=== PATIENT | male | born 1955 | race Caucasian/White ===

== ENCOUNTER → 2017-08-05 | Outpatient (CLI) | payer MEDICARE ==
[2017-08-05 14:47] LABS: BASO # 0.1 x10^3/uL (0.0-0.2); BASO % 1 % (0-3); EOS % 3 % (0-3); HEMATOCRIT 42.7 % (39.0-53.0); HEMOGLOBIN 13.9 g/dL (13.0-17.5); LYMPH # 2.4 x10^3/uL (1.0-4.8); LYMPH % 21 % (24-48); MEAN CORPUSCULAR HEMOGLOBIN 30 pg (25-35); MEAN CORPUSCULAR HGB CONC 33 g/dL (31-37); MEAN CORPUSCULAR VOLUME 92 fL (79-100); MONO % 5 % (0-9); NEUT % 70 % (31-73); PLATELET COUNT 239 x10^3/uL (140-400); RED BLOOD COUNT 4.63 x10^6/uL (4.30-5.70); RED CELL DISTRIBUTION WIDTH 13.6 % (11.5-14.5); WHITE BLOOD COUNT 11.3 x10^3/uL (4.0-11.0)
[2017-08-05 15:06] LABS: ALBUMIN 3.3 g/dL (3.4-5.0); ALBUMIN/GLOBULIN RATIO 0.7 (1.0-1.7); CALCIUM 9.2 mg/dL (8.5-10.1); CHOLESTEROL/HDL RATIO 3.4; CREATININE 1.4 mg/dL (0.7-1.3); GFR 51.9; TOTAL BILIRUBIN 0.4 mg/dL (0.2-1.0); TOTAL PROTEIN 7.9 g/dL (6.4-8.2)
== END | disposition home or self-care (01) ==
LOC: LAB 14:14
PROVIDERS: ATTEND Family Medicine
DX: I10 Essential (primary) hypertension (principal); E11.9 Type 2 diabetes mellitus without complications
CPT/HCPCS: 36415; 80053; 80061; 83036; 84443; 85025

== ENCOUNTER → 2017-09-28 | Outpatient (CLI) | payer MEDICARE | END | disposition home or self-care (01) | LOC: PMGWOUND 11:31 | DX: E11.621 Type 2 diabetes mellitus with foot ulcer (principal); L97.421 Non-pressure chronic ulcer of left heel and midfoot limited to breakdown of skin; E11.40 Type 2 diabetes mellitus with diabetic neuropathy, unspecified; E11.319 Type 2 diabetes mellitus with unspecified diabetic retinopathy without macular edema; E11.21 Type 2 diabetes mellitus with diabetic nephropathy; E11.51 Type 2 diabetes mellitus with diabetic peripheral angiopathy without gangrene; E03.9 Hypothyroidism, unspecified; G89.29 Other chronic pain; M54.9 Dorsalgia, unspecified; I25.810 Atherosclerosis of coronary artery bypass graft(s) without angina pectoris; E78.5 Hyperlipidemia, unspecified; I10 Essential (primary) hypertension; F17.210 Nicotine dependence, cigarettes, uncomplicated; Z72.89 Other problems related to lifestyle; E66.01 Morbid (severe) obesity due to excess calories; Z68.41 Body mass index [BMI] 40.0-44.9, adult; Z95.1 Presence of aortocoronary bypass graft | CPT/HCPCS: 99204; 99214 ==

== ENCOUNTER → 2017-10-05 | Outpatient (CLI) | payer MEDICARE | END | disposition home or self-care (01) | LOC: PMGWOUND 11:24 | DX: E11.621 Type 2 diabetes mellitus with foot ulcer (principal); L97.421 Non-pressure chronic ulcer of left heel and midfoot limited to breakdown of skin; E11.40 Type 2 diabetes mellitus with diabetic neuropathy, unspecified; E11.319 Type 2 diabetes mellitus with unspecified diabetic retinopathy without macular edema; E11.21 Type 2 diabetes mellitus with diabetic nephropathy; E11.51 Type 2 diabetes mellitus with diabetic peripheral angiopathy without gangrene; E03.9 Hypothyroidism, unspecified; G89.29 Other chronic pain; M54.9 Dorsalgia, unspecified; I25.810 Atherosclerosis of coronary artery bypass graft(s) without angina pectoris; E78.5 Hyperlipidemia, unspecified; I10 Essential (primary) hypertension; F17.210 Nicotine dependence, cigarettes, uncomplicated; Z72.89 Other problems related to lifestyle; E66.01 Morbid (severe) obesity due to excess calories; Z68.41 Body mass index [BMI] 40.0-44.9, adult; Z95.1 Presence of aortocoronary bypass graft | CPT/HCPCS: 93922; 93926; 97597 ==

== ENCOUNTER → 2017-10-12 | Outpatient (CLI) | payer MEDICARE | END | disposition home or self-care (01) | LOC: PMGWOUND 11:32 | DX: E11.621 Type 2 diabetes mellitus with foot ulcer (principal); L97.421 Non-pressure chronic ulcer of left heel and midfoot limited to breakdown of skin; E11.40 Type 2 diabetes mellitus with diabetic neuropathy, unspecified; E11.319 Type 2 diabetes mellitus with unspecified diabetic retinopathy without macular edema; E11.21 Type 2 diabetes mellitus with diabetic nephropathy; E11.51 Type 2 diabetes mellitus with diabetic peripheral angiopathy without gangrene; E03.9 Hypothyroidism, unspecified; G89.29 Other chronic pain; M54.9 Dorsalgia, unspecified; I25.810 Atherosclerosis of coronary artery bypass graft(s) without angina pectoris; E78.5 Hyperlipidemia, unspecified; I10 Essential (primary) hypertension; F17.210 Nicotine dependence, cigarettes, uncomplicated; Z72.89 Other problems related to lifestyle; E66.01 Morbid (severe) obesity due to excess calories; Z68.41 Body mass index [BMI] 40.0-44.9, adult; Z95.1 Presence of aortocoronary bypass graft | CPT/HCPCS: 97597 ==

== ENCOUNTER → 2017-10-19 | Outpatient (CLI) | payer MEDICARE | END | disposition home or self-care (01) | LOC: PMGWOUND 11:00 | DX: E11.621 Type 2 diabetes mellitus with foot ulcer (principal); L97.421 Non-pressure chronic ulcer of left heel and midfoot limited to breakdown of skin; E11.40 Type 2 diabetes mellitus with diabetic neuropathy, unspecified; E11.319 Type 2 diabetes mellitus with unspecified diabetic retinopathy without macular edema; E11.21 Type 2 diabetes mellitus with diabetic nephropathy; E11.51 Type 2 diabetes mellitus with diabetic peripheral angiopathy without gangrene; E03.9 Hypothyroidism, unspecified; G89.29 Other chronic pain; M54.9 Dorsalgia, unspecified; I25.10 Atherosclerotic heart disease of native coronary artery without angina pectoris; E78.5 Hyperlipidemia, unspecified; I10 Essential (primary) hypertension; F17.210 Nicotine dependence, cigarettes, uncomplicated; E66.01 Morbid (severe) obesity due to excess calories; Z68.41 Body mass index [BMI] 40.0-44.9, adult; Z72.89 Other problems related to lifestyle; Z95.1 Presence of aortocoronary bypass graft | CPT/HCPCS: 97597 ==

== ENCOUNTER → 2017-10-26 | Outpatient (CLI) | payer MEDICARE | END | disposition home or self-care (01) | LOC: PMGWOUND 12:45 | DX: E11.621 Type 2 diabetes mellitus with foot ulcer (principal); L97.421 Non-pressure chronic ulcer of left heel and midfoot limited to breakdown of skin; E11.40 Type 2 diabetes mellitus with diabetic neuropathy, unspecified; E11.319 Type 2 diabetes mellitus with unspecified diabetic retinopathy without macular edema; E11.21 Type 2 diabetes mellitus with diabetic nephropathy; E11.51 Type 2 diabetes mellitus with diabetic peripheral angiopathy without gangrene; E03.9 Hypothyroidism, unspecified; G89.29 Other chronic pain; M54.9 Dorsalgia, unspecified; I25.10 Atherosclerotic heart disease of native coronary artery without angina pectoris; E78.5 Hyperlipidemia, unspecified; I10 Essential (primary) hypertension; F17.210 Nicotine dependence, cigarettes, uncomplicated; E66.01 Morbid (severe) obesity due to excess calories; Z68.41 Body mass index [BMI] 40.0-44.9, adult; Z72.89 Other problems related to lifestyle; Z95.1 Presence of aortocoronary bypass graft | CPT/HCPCS: 97597 ==

== ENCOUNTER → 2017-11-02 | Outpatient (CLI) | payer MEDICARE | END | disposition home or self-care (01) | LOC: PMGWOUND 13:11 | DX: E11.621 Type 2 diabetes mellitus with foot ulcer (principal); L97.421 Non-pressure chronic ulcer of left heel and midfoot limited to breakdown of skin; E11.40 Type 2 diabetes mellitus with diabetic neuropathy, unspecified; E11.319 Type 2 diabetes mellitus with unspecified diabetic retinopathy without macular edema; E11.21 Type 2 diabetes mellitus with diabetic nephropathy; E11.51 Type 2 diabetes mellitus with diabetic peripheral angiopathy without gangrene; E03.9 Hypothyroidism, unspecified; G89.29 Other chronic pain; M54.9 Dorsalgia, unspecified; I25.10 Atherosclerotic heart disease of native coronary artery without angina pectoris; E78.5 Hyperlipidemia, unspecified; I10 Essential (primary) hypertension; F17.210 Nicotine dependence, cigarettes, uncomplicated; E66.01 Morbid (severe) obesity due to excess calories; Z68.41 Body mass index [BMI] 40.0-44.9, adult; Z72.89 Other problems related to lifestyle; Z95.1 Presence of aortocoronary bypass graft | CPT/HCPCS: 99214 ==

== ENCOUNTER → 2017-11-10 | Outpatient (CLI) | payer MEDICARE | END | disposition home or self-care (01) | LOC: PMGWOUND 12:43 | DX: E11.621 Type 2 diabetes mellitus with foot ulcer (principal); L97.428 Non-pressure chronic ulcer of left heel and midfoot with other specified severity; I70.202 Unspecified atherosclerosis of native arteries of extremities, left leg; I25.10 Atherosclerotic heart disease of native coronary artery without angina pectoris; I10 Essential (primary) hypertension; E78.5 Hyperlipidemia, unspecified; E03.9 Hypothyroidism, unspecified; E66.01 Morbid (severe) obesity due to excess calories; G89.29 Other chronic pain; E11.40 Type 2 diabetes mellitus with diabetic neuropathy, unspecified; E11.21 Type 2 diabetes mellitus with diabetic nephropathy; E11.51 Type 2 diabetes mellitus with diabetic peripheral angiopathy without gangrene; E11.319 Type 2 diabetes mellitus with unspecified diabetic retinopathy without macular edema; F17.210 Nicotine dependence, cigarettes, uncomplicated; Z68.41 Body mass index [BMI] 40.0-44.9, adult; Z95.1 Presence of aortocoronary bypass graft; Z72.89 Other problems related to lifestyle | CPT/HCPCS: 11042 ==

== ENCOUNTER → 2017-11-17 | Outpatient (CLI) | payer MEDICARE | END | disposition home or self-care (01) | LOC: PMGWOUND 11:30 | DX: E11.621 Type 2 diabetes mellitus with foot ulcer (principal); L97.428 Non-pressure chronic ulcer of left heel and midfoot with other specified severity; I70.202 Unspecified atherosclerosis of native arteries of extremities, left leg; I25.10 Atherosclerotic heart disease of native coronary artery without angina pectoris; I10 Essential (primary) hypertension; E78.5 Hyperlipidemia, unspecified; E03.9 Hypothyroidism, unspecified; E66.01 Morbid (severe) obesity due to excess calories; G89.29 Other chronic pain; E11.40 Type 2 diabetes mellitus with diabetic neuropathy, unspecified; E11.51 Type 2 diabetes mellitus with diabetic peripheral angiopathy without gangrene; E11.21 Type 2 diabetes mellitus with diabetic nephropathy; E11.319 Type 2 diabetes mellitus with unspecified diabetic retinopathy without macular edema; F17.210 Nicotine dependence, cigarettes, uncomplicated; Z68.41 Body mass index [BMI] 40.0-44.9, adult; Z95.1 Presence of aortocoronary bypass graft; Z72.89 Other problems related to lifestyle | CPT/HCPCS: 97597 ==

== ENCOUNTER → 2017-11-24 | Outpatient (CLI) | payer MEDICARE | END | disposition home or self-care (01) | LOC: PMGWOUND 11:57 | DX: E11.621 Type 2 diabetes mellitus with foot ulcer (principal); L97.428 Non-pressure chronic ulcer of left heel and midfoot with other specified severity; I70.202 Unspecified atherosclerosis of native arteries of extremities, left leg; I25.10 Atherosclerotic heart disease of native coronary artery without angina pectoris; I10 Essential (primary) hypertension; E78.5 Hyperlipidemia, unspecified; E03.9 Hypothyroidism, unspecified; E66.01 Morbid (severe) obesity due to excess calories; G89.29 Other chronic pain; E11.40 Type 2 diabetes mellitus with diabetic neuropathy, unspecified; E11.51 Type 2 diabetes mellitus with diabetic peripheral angiopathy without gangrene; E11.21 Type 2 diabetes mellitus with diabetic nephropathy; E11.319 Type 2 diabetes mellitus with unspecified diabetic retinopathy without macular edema; F17.210 Nicotine dependence, cigarettes, uncomplicated; Z68.41 Body mass index [BMI] 40.0-44.9, adult; Z95.1 Presence of aortocoronary bypass graft | CPT/HCPCS: 97597 ==

== ENCOUNTER → 2017-12-01 | Outpatient (CLI) | payer MEDICARE | END | disposition home or self-care (01) | LOC: PMGWOUND 10:29 | DX: E11.621 Type 2 diabetes mellitus with foot ulcer (principal); L97.428 Non-pressure chronic ulcer of left heel and midfoot with other specified severity; I70.202 Unspecified atherosclerosis of native arteries of extremities, left leg; I25.10 Atherosclerotic heart disease of native coronary artery without angina pectoris; I10 Essential (primary) hypertension; E78.5 Hyperlipidemia, unspecified; E03.9 Hypothyroidism, unspecified; E66.01 Morbid (severe) obesity due to excess calories; G89.29 Other chronic pain; E11.40 Type 2 diabetes mellitus with diabetic neuropathy, unspecified; E11.51 Type 2 diabetes mellitus with diabetic peripheral angiopathy without gangrene; E11.21 Type 2 diabetes mellitus with diabetic nephropathy; E11.319 Type 2 diabetes mellitus with unspecified diabetic retinopathy without macular edema; F17.210 Nicotine dependence, cigarettes, uncomplicated; Z68.41 Body mass index [BMI] 40.0-44.9, adult; Z95.1 Presence of aortocoronary bypass graft | CPT/HCPCS: 97597 ==

== ENCOUNTER → 2017-12-08 | Outpatient (CLI) | payer MEDICARE | END | disposition home or self-care (01) | LOC: PMGWOUND 10:23 | DX: E11.621 Type 2 diabetes mellitus with foot ulcer (principal); L97.428 Non-pressure chronic ulcer of left heel and midfoot with other specified severity; I70.202 Unspecified atherosclerosis of native arteries of extremities, left leg; I10 Essential (primary) hypertension; I25.10 Atherosclerotic heart disease of native coronary artery without angina pectoris; E78.5 Hyperlipidemia, unspecified; E03.9 Hypothyroidism, unspecified; E66.01 Morbid (severe) obesity due to excess calories; G89.29 Other chronic pain; M54.9 Dorsalgia, unspecified; E11.40 Type 2 diabetes mellitus with diabetic neuropathy, unspecified; E11.51 Type 2 diabetes mellitus with diabetic peripheral angiopathy without gangrene; E11.21 Type 2 diabetes mellitus with diabetic nephropathy; E11.319 Type 2 diabetes mellitus with unspecified diabetic retinopathy without macular edema; F17.210 Nicotine dependence, cigarettes, uncomplicated; Z68.41 Body mass index [BMI] 40.0-44.9, adult; Z95.1 Presence of aortocoronary bypass graft | CPT/HCPCS: 11042 ==

== ENCOUNTER → 2017-12-15 | Outpatient (CLI) | payer MEDICARE | END | disposition home or self-care (01) | LOC: PMGWOUND 10:05 | DX: E11.621 Type 2 diabetes mellitus with foot ulcer (principal); L97.421 Non-pressure chronic ulcer of left heel and midfoot limited to breakdown of skin; I70.202 Unspecified atherosclerosis of native arteries of extremities, left leg; I10 Essential (primary) hypertension; I25.10 Atherosclerotic heart disease of native coronary artery without angina pectoris; E78.5 Hyperlipidemia, unspecified; E03.9 Hypothyroidism, unspecified; L84 Corns and callosities; E66.01 Morbid (severe) obesity due to excess calories; G89.29 Other chronic pain; M54.9 Dorsalgia, unspecified; E11.40 Type 2 diabetes mellitus with diabetic neuropathy, unspecified; E11.51 Type 2 diabetes mellitus with diabetic peripheral angiopathy without gangrene; E11.21 Type 2 diabetes mellitus with diabetic nephropathy; E11.319 Type 2 diabetes mellitus with unspecified diabetic retinopathy without macular edema; F17.210 Nicotine dependence, cigarettes, uncomplicated; Z68.41 Body mass index [BMI] 40.0-44.9, adult; Z95.1 Presence of aortocoronary bypass graft | CPT/HCPCS: 97597 ==

== ENCOUNTER → 2017-12-22 | Outpatient (CLI) | payer MEDICARE | END | disposition home or self-care (01) | LOC: PMGWOUND 10:50 | DX: E11.621 Type 2 diabetes mellitus with foot ulcer (principal); L97.421 Non-pressure chronic ulcer of left heel and midfoot limited to breakdown of skin; I70.202 Unspecified atherosclerosis of native arteries of extremities, left leg; E11.40 Type 2 diabetes mellitus with diabetic neuropathy, unspecified; E11.51 Type 2 diabetes mellitus with diabetic peripheral angiopathy without gangrene; E11.21 Type 2 diabetes mellitus with diabetic nephropathy; E11.319 Type 2 diabetes mellitus with unspecified diabetic retinopathy without macular edema; I10 Essential (primary) hypertension; I25.10 Atherosclerotic heart disease of native coronary artery without angina pectoris; E78.5 Hyperlipidemia, unspecified; E03.9 Hypothyroidism, unspecified; L84 Corns and callosities; E66.01 Morbid (severe) obesity due to excess calories; G89.29 Other chronic pain; M54.9 Dorsalgia, unspecified; F17.210 Nicotine dependence, cigarettes, uncomplicated; Z68.41 Body mass index [BMI] 40.0-44.9, adult; Z95.1 Presence of aortocoronary bypass graft | CPT/HCPCS: 11042 ==

== ENCOUNTER → 2018-01-05 | Outpatient (CLI) | payer MEDICARE | END | disposition home or self-care (01) | LOC: PMGWOUND 12:07 | DX: E11.621 Type 2 diabetes mellitus with foot ulcer (principal); L97.428 Non-pressure chronic ulcer of left heel and midfoot with other specified severity; I70.202 Unspecified atherosclerosis of native arteries of extremities, left leg; I25.10 Atherosclerotic heart disease of native coronary artery without angina pectoris; I10 Essential (primary) hypertension; E78.5 Hyperlipidemia, unspecified; E03.9 Hypothyroidism, unspecified; E66.01 Morbid (severe) obesity due to excess calories; G89.29 Other chronic pain; E11.40 Type 2 diabetes mellitus with diabetic neuropathy, unspecified; E11.21 Type 2 diabetes mellitus with diabetic nephropathy; E11.51 Type 2 diabetes mellitus with diabetic peripheral angiopathy without gangrene; E11.319 Type 2 diabetes mellitus with unspecified diabetic retinopathy without macular edema; I25.2 Old myocardial infarction; F17.210 Nicotine dependence, cigarettes, uncomplicated; Z72.89 Other problems related to lifestyle; Z68.41 Body mass index [BMI] 40.0-44.9, adult; Z95.1 Presence of aortocoronary bypass graft; Z79.01 Long term (current) use of anticoagulants | CPT/HCPCS: 97597 ==

== ENCOUNTER → 2018-01-19 | Outpatient (CLI) | payer MEDICARE | END | disposition home or self-care (01) | LOC: PMGWOUND 11:54 | DX: E11.621 Type 2 diabetes mellitus with foot ulcer (principal); L97.428 Non-pressure chronic ulcer of left heel and midfoot with other specified severity; I70.202 Unspecified atherosclerosis of native arteries of extremities, left leg; I25.10 Atherosclerotic heart disease of native coronary artery without angina pectoris; I10 Essential (primary) hypertension; E78.5 Hyperlipidemia, unspecified; E03.9 Hypothyroidism, unspecified; E66.01 Morbid (severe) obesity due to excess calories; G89.29 Other chronic pain; E11.40 Type 2 diabetes mellitus with diabetic neuropathy, unspecified; E11.21 Type 2 diabetes mellitus with diabetic nephropathy; E11.51 Type 2 diabetes mellitus with diabetic peripheral angiopathy without gangrene; E11.319 Type 2 diabetes mellitus with unspecified diabetic retinopathy without macular edema; I25.2 Old myocardial infarction; F17.210 Nicotine dependence, cigarettes, uncomplicated; Z68.41 Body mass index [BMI] 40.0-44.9, adult; Z95.1 Presence of aortocoronary bypass graft; Z79.01 Long term (current) use of anticoagulants | CPT/HCPCS: 11042 ==

== ENCOUNTER → 2018-01-26 | Outpatient (CLI) | payer MEDICARE | END | disposition home or self-care (01) | LOC: PMGWOUND 11:54 | DX: E11.621 Type 2 diabetes mellitus with foot ulcer (principal); L97.421 Non-pressure chronic ulcer of left heel and midfoot limited to breakdown of skin; I70.202 Unspecified atherosclerosis of native arteries of extremities, left leg; I25.10 Atherosclerotic heart disease of native coronary artery without angina pectoris; E11.40 Type 2 diabetes mellitus with diabetic neuropathy, unspecified; E11.21 Type 2 diabetes mellitus with diabetic nephropathy; E11.51 Type 2 diabetes mellitus with diabetic peripheral angiopathy without gangrene; E11.319 Type 2 diabetes mellitus with unspecified diabetic retinopathy without macular edema; I25.2 Old myocardial infarction; I10 Essential (primary) hypertension; E78.5 Hyperlipidemia, unspecified; E03.9 Hypothyroidism, unspecified; E66.01 Morbid (severe) obesity due to excess calories; G89.29 Other chronic pain; L84 Corns and callosities; F17.210 Nicotine dependence, cigarettes, uncomplicated; Z68.41 Body mass index [BMI] 40.0-44.9, adult; Z95.1 Presence of aortocoronary bypass graft; Z79.01 Long term (current) use of anticoagulants | CPT/HCPCS: 97597 ==

== ENCOUNTER → 2018-02-04 | Outpatient (CLI) | payer MEDICARE | END | disposition home or self-care (01) | LOC: PMGWOUND 11:46 | DX: E11.621 Type 2 diabetes mellitus with foot ulcer (principal); L97.421 Non-pressure chronic ulcer of left heel and midfoot limited to breakdown of skin; I70.202 Unspecified atherosclerosis of native arteries of extremities, left leg; I25.10 Atherosclerotic heart disease of native coronary artery without angina pectoris; E11.40 Type 2 diabetes mellitus with diabetic neuropathy, unspecified; E11.21 Type 2 diabetes mellitus with diabetic nephropathy; E11.51 Type 2 diabetes mellitus with diabetic peripheral angiopathy without gangrene; E11.319 Type 2 diabetes mellitus with unspecified diabetic retinopathy without macular edema; I25.2 Old myocardial infarction; I10 Essential (primary) hypertension; E78.5 Hyperlipidemia, unspecified; E03.9 Hypothyroidism, unspecified; E66.01 Morbid (severe) obesity due to excess calories; G89.29 Other chronic pain; L84 Corns and callosities; F17.210 Nicotine dependence, cigarettes, uncomplicated; Z68.41 Body mass index [BMI] 40.0-44.9, adult; Z95.1 Presence of aortocoronary bypass graft; Z79.01 Long term (current) use of anticoagulants | CPT/HCPCS: 11042 ==

== ENCOUNTER → 2018-02-18 | Outpatient (CLI) | payer MEDICARE | END | disposition home or self-care (01) | LOC: PMGWOUND 11:20 | DX: E11.621 Type 2 diabetes mellitus with foot ulcer (principal); L97.421 Non-pressure chronic ulcer of left heel and midfoot limited to breakdown of skin; I70.202 Unspecified atherosclerosis of native arteries of extremities, left leg; I25.10 Atherosclerotic heart disease of native coronary artery without angina pectoris; E11.40 Type 2 diabetes mellitus with diabetic neuropathy, unspecified; E11.21 Type 2 diabetes mellitus with diabetic nephropathy; E11.51 Type 2 diabetes mellitus with diabetic peripheral angiopathy without gangrene; E11.319 Type 2 diabetes mellitus with unspecified diabetic retinopathy without macular edema; I25.2 Old myocardial infarction; I10 Essential (primary) hypertension; E78.5 Hyperlipidemia, unspecified; E03.9 Hypothyroidism, unspecified; E66.01 Morbid (severe) obesity due to excess calories; G89.29 Other chronic pain; L84 Corns and callosities; F17.210 Nicotine dependence, cigarettes, uncomplicated; Z68.41 Body mass index [BMI] 40.0-44.9, adult; Z95.1 Presence of aortocoronary bypass graft; Z79.01 Long term (current) use of anticoagulants | CPT/HCPCS: 99214 ==

== ENCOUNTER → 2018-03-09 | Outpatient (CLI) | payer MEDICARE | END | disposition home or self-care (01) | LOC: PMGWOUND 11:24 | DX: E11.621 Type 2 diabetes mellitus with foot ulcer (principal); L97.421 Non-pressure chronic ulcer of left heel and midfoot limited to breakdown of skin; L97.511 Non-pressure chronic ulcer of other part of right foot limited to breakdown of skin; E11.622 Type 2 diabetes mellitus with other skin ulcer; L97.211 Non-pressure chronic ulcer of right calf limited to breakdown of skin; I70.232 Atherosclerosis of native arteries of right leg with ulceration of calf; I87.2 Venous insufficiency (chronic) (peripheral); I70.202 Unspecified atherosclerosis of native arteries of extremities, left leg; I25.10 Atherosclerotic heart disease of native coronary artery without angina pectoris; E11.40 Type 2 diabetes mellitus with diabetic neuropathy, unspecified; E11.21 Type 2 diabetes mellitus with diabetic nephropathy; E11.51 Type 2 diabetes mellitus with diabetic peripheral angiopathy without gangrene; E11.319 Type 2 diabetes mellitus with unspecified diabetic retinopathy without macular edema; I25.2 Old myocardial infarction; I10 Essential (primary) hypertension; E78.5 Hyperlipidemia, unspecified; E03.9 Hypothyroidism, unspecified; E66.01 Morbid (severe) obesity due to excess calories; G89.29 Other chronic pain; L84 Corns and callosities; F17.210 Nicotine dependence, cigarettes, uncomplicated; Z68.41 Body mass index [BMI] 40.0-44.9, adult; Z95.1 Presence of aortocoronary bypass graft; Z79.01 Long term (current) use of anticoagulants | CPT/HCPCS: 99214 ==

== ENCOUNTER 2018-04-12 05:57 | Inpatient (IN) | payer MEDICARE ==
[~2018-04-12] VITALS: Ht 175.3 cm; Wt 126.1 kg
[2018-04-12] VITALS (7 sets, daily range): BP systolic 111–146; BP diastolic 53–65
[~2018-04-12 05:57] MED LIST: ASCO500T2 PO; ATORVASTATIN CA80 MG PO; CHOL200027 PO; CLOP75TA PO; CYCL10TA2 PO; INSU100V11 IJ; IOHEXOL 300 MG/ML 100ML VIAL. ONE; ISOS30TA4 PO; LEVO50TA5 PO; LISI10TA2 PO; METF100010 PO; METO25TA4 PO; MIRT30TA3 PO; MULT-460 PO; NPH,100V5 SQ; OXYC10TA PO; POLY17PO29 PO; SURGICEL FIBRILLAR 1X2 EACH. ONE
[2018-04-12] MEDS ORDERED: HEPARIN SODIUM 5,000 UNIT in IV NORMAL SALINE 500ML BAG 500 ML IRR ONE (06:00)
[2018-04-12 06:35] LABS: BASO # 0.1 x10^3/uL (0.0-0.2); BASO % 1 % (0-3); EOS # 0.2 x10^3/uL (0.0-0.7); EOS % 3 % (0-3); HEMATOCRIT 36.9 % (39.0-53.0); HEMOGLOBIN 12.6 g/dL (13.0-17.5); LYMPH # 3.1 x10^3/uL (1.0-4.8); LYMPH % 31 % (24-48); MEAN CORPUSCULAR HEMOGLOBIN 30 pg (25-35); MEAN CORPUSCULAR HGB CONC 34 g/dL (31-37); MEAN CORPUSCULAR VOLUME 88 fL (79-100); MONO # 0.7 x10^3/uL (0.0-1.1); MONO % 7 % (0-9); NEUT # 5.9 x10^3uL (1.8-7.7); NEUT % 59 % (31-73); PLATELET COUNT 263 x10^3/uL (140-400); RED BLOOD COUNT 4.19 x10^6/uL (4.30-5.70); RED CELL DISTRIBUTION WIDTH 13.6 % (11.5-14.5)
[2018-04-12 06:45] LABS: PROTHROMBIN TIME PATIENT 12.3 SEC (11.7-14.0)
[2018-04-12 06:53] LABS: CALCIUM 9.4 mg/dL (8.5-10.1); CREATININE 1.9 mg/dL (0.7-1.3); GFR 36.3; POTASSIUM 4.1 mmol/L (3.5-5.1)
[2018-04-12] MEDS ORDERED: ceFAZolin 2GM PREMIX 2 GM/50 ML BAG IV ONE (07:00)
[2018-04-12] MEDS ORDERED: PROCHLORPERAZINE 10 MG/2 ML VIAL. IV PRN (07:00)
[2018-04-12] MEDS ORDERED: MORPHINE SULFATE 2 MG/ML VIAL. IV PRN ×2 (07:00→14:15)
[2018-04-12] MEDS ORDERED: fentaNYL PF VIAL 100 MCG/2 ML VIAL IV PRN (07:00)
[2018-04-12] MEDS ORDERED: ONDANSETRON PF 4 MG/2 ML VIAL. IV PRN (07:00)
[2018-04-12] MEDS ORDERED: IV RINGERS,LACTATED 1000ML 1,000 ML IV SCH (07:00)
[2018-04-12] MEDS ORDERED: LIDOCAINE 1% PF 2 ML VIAL. ID PRN (07:00)
[2018-04-12] MEDS ORDERED: LIDOCAINE 2% PF Vial for OR 5 ML VIAL. ONE (07:01)
[2018-04-12] MEDS ORDERED: DEXAMETHASONE SOD PHOS 20 MG/5 ML VIAL. ONE (07:01)
[2018-04-12] MEDS ORDERED: PROPOFOL 20 ML IV ONE ×2 (07:01→10:26)
[2018-04-12] MEDS ORDERED: ONDANSETRON PF 4 MG/2 ML VIAL. ONE (07:01)
[2018-04-12] MEDS ORDERED: FAMOTIDINE 20 MG/2 ML VIAL ONE (07:01)
[2018-04-12] MEDS ORDERED: ROCURONIUM 50 MG/5 ML VIAL. ONE (07:01)
[2018-04-12] MEDS ORDERED: fentaNYL PF VIAL 100 MCG/2 ML VIAL ONE ×4 (07:02→11:55)
[2018-04-12] MEDS ORDERED: MIDAZOLAM HCL/PF 2 MG/2 ML VIAL. ONE (07:02)
[2018-04-12] MEDS ORDERED: SUCCINYLCHOLINE 200 MG/10 ML VIAL. ONE (07:31)
[2018-04-12] MEDS ORDERED: PHENYLEPHRINE in 0.9% NACL PF 1 MG/10 ML SYRINGE. IV ONE (07:53)
[2018-04-12] MEDS ORDERED: VASOPRESSIN 20 UNIT/ML VIAL. ONE (08:43)
[2018-04-12] MEDS ORDERED: SEVOFLURANE 61 TO 120 MINUTES. IH ONE ×2 (09:01→09:07)
[2018-04-12] MEDS ORDERED: HEPARIN for IV BOLUS 10,000 UNIT/10 ML VIAL. ONE (09:01)
[2018-04-12] MEDS ORDERED: NEOSTIGMINE METHYLSULFATE 5 MG/5 ML SYRINGE. ONE (10:15)
[2018-04-12] MEDS ORDERED: DESFLURANE > 120 MINUTES IH ONE (10:15)
[2018-04-12] MEDS ORDERED: GLYCOPYRROLATE 1 MG/5 ML VIAL. ONE (10:16)
--- NOTE | 2018-04-12 10:55 | PDOC4 ---
OPERATIVE NOTE: Op note dictated Dx: arterial insuffficiency right leg with ulcers 2. extensive right common femoral, profunda femoral and proximal superficial femoral atherosclerosis producing high grade stenosis Op: 1. extensive right common femoral, profunda femoris, and proximal superficial femoral artery endarterectomy with bovine patch angioplasty Surg: Darleen LINDSAY EBL: 300 cc drains none specimen: atherosclerotic placque, not sent to pathology. EARNEST GALICIA II, MD Apr 12, 2018 10:55
--- NOTE | 2018-04-12 11:27 | OP ---
DATE OF SURGERY: 04/12/2018 PREOPERATIVE DIAGNOSIS: Arterial insufficiency with ulcer, right foot. POSTOPERATIVE DIAGNOSIS: Arterial insufficiency with ulcer, right foot, due to extensive right common femoral, profunda femoris and superficial femoral artery atherosclerosis producing significant stenosis. OPERATION PERFORMED: Right extending common femoral, profunda femoris and superficial femoral artery endarterectomy with bovine patch angioplasty. SURGEON: Ron Morejon M.D. BLOOD BANK TECHNOLOGIST: None. ANESTHESIA: General. INDICATIONS: This is a 62-year-old gentleman who has ulcer on the right foot. He underwent preoperative CT angiography, which demonstrates severe stenosis of the common femoral, profunda and proximal superficial femoral arteries. He has diffuse disease of the superficial femoral artery, but it is patent. He underwent a similar procedure on the left and did well and is having no rest pain and no significant claudication there. The operation risks and benefits were explained. OPERATIVE FINDINGS: The patient had extensive plaque extending proximal to the inguinal ligament to approximately 2 inches beyond the bifurcation of the common femoral artery. There was extensive calcific plaque, which would require endarterectomy of these 3 vessels. A bovine patch was used for closure. At the conclusion of the procedure, the patient had excellent flow in the profunda femoris and in the superficial femoral artery and an excellent palpable pulse in the endarterectomized and patched common femoral artery. DESCRIPTION OF PROCEDURE: After general anesthetic was administered, the right leg was prepped as well as the groin up to the mid abdomen. Tape was used to retract the pannus proximally. Drapes were placed and Ioban occlusive dressing was applied. The patient then was given 3 grams of IV Ancef and a timeout was called. An incision was then made over the common femoral artery, which was not palpable due to extensive calcification. The superficial femoral, profunda and common femoral arteries were dissected. The common femoral artery was dissected up to the inguinal ligament, which was partially divided. There were large branches at this location and proximal to this, the vessel was soft. Vessel loops were placed around all the branches and the distal external iliac artery as well as the profunda. The patient was given 7000 units of heparin and after 3 minutes circulation, a longitudinal arteriotomy was made in the distal common femoral artery and extended onto the superficial femoral artery. There was extensive eccentric calcific plaque which was divided and this was carried distally until an appropriate endpoint was achieved. Endarterectomy was performed of the proximal superficial femoral artery. Plaque was also removed from the profunda femoris artery using a blind technique. A nice tail came out and there was good backbleeding. The plaque was then loosened up circumferentially all the way up to the side-biting clamp and then removed with a tonsil clamp. The artery was inspected for loose strands and it all looked satisfactory. A bovine patch then was placed and sutured with HS7 Prolene starting proximally and then distally and moving toward the middle. Prior to completing the patch closure, the vessels were flushed appropriately. Flow was then restored first to the profunda and then to the superficial femoral arteries. No protamine was given. The wounds were irrigated and closed in 4 layers. There were two layers of 2-0 Vicryl and one layer of 3-0 Vicryl and then the skin closed with 4-0 nylon. Sterile dressings were applied. The patient tolerated the procedure well and was taken to the recovery room in satisfactory condition. RON MOREJON MD DR: [place]/eliane JOB#: [id number] / [id number]
[2018-04-12] MEDS: fentaNYL PF VIAL 100 MCG/2 ML VIAL IV PRN ×3 (11:51→12:27)
[2018-04-12] MEDS: IV RINGERS,LACTATED 1000ML 1,000 ML IV SCH (14:00)
[2018-04-12] MEDS: MORPHINE SULFATE 2 MG/ML VIAL. IV PRN ×2 (15:10→20:24)
[2018-04-12] MEDS: INSULIN LISPRO 300 UNITS/3 ML INSULN.PEN. SQ SCH (17:54)
[2018-04-12] MEDS: HYDROcodone/APAP 10/325 1 TAB TABLET PO PRN (17:57)
[2018-04-12] MEDS: INSULIN GLARGINE 300 UNITS/3 ML INSULN.PEN. SQ SCH (20:38)
[2018-04-12] MEDS: CYCLOBENZAPRINE 10 MG TABLET. PO SCH (20:43)
[2018-04-12] MEDS: ATORVASTATIN CALCIUM 40 MG TABLET. PO SCH (20:44)
[2018-04-12] MEDS: MIRTAZAPINE 15 MG TABLET PO SCH (20:44)
[2018-04-13] MEDS: HYDROcodone/APAP 10/325 1 TAB TABLET PO PRN ×3 (00:24→17:56)
[2018-04-13] MEDS: FAMOTIDINE 20 MG TABLET. PO PRN ×2 (00:43→15:50)
[2018-04-13] MEDS: IV RINGERS,LACTATED 1000ML 1,000 ML IV SCH (01:22)
[2018-04-13 03:30] VITALS: BP 153/68
[2018-04-13] MEDS: MAG HYDROX/ALUMINUM HYD/SIMETH 30 ML ORAL.SUSP PO PRN ×3 (04:53→15:50)
[2018-04-13] MEDS: ONDANSETRON PF 4 MG/2 ML VIAL. IV PRN ×2 (04:57→13:32)
[2018-04-13] MEDS: LEVOTHYROXINE 50 MCG TABLET PO SCH (06:30)
[2018-04-13 07:00] VITALS: BP 149/84
[2018-04-13] MEDS: ASCORBIC ACID 500 MG TABLET PO SCH (08:36)
[2018-04-13] MEDS: CLOPIDOGREL BISULFATE 75 MG TABLET PO SCH (08:36)
[2018-04-13] MEDS: MULTIVITAMIN with MINERAL TABLET. PO SCH (08:37)
[2018-04-13] MEDS: CHOLECALCIFEROL (VITAMIN D3) 1,000 UNIT TABLET PO SCH (08:37)
[2018-04-13] MEDS: METOPROLOL TART IMMED RELEASE 25 MG TABLET. PO SCH ×2 (08:37→20:16)
[2018-04-13] MEDS: LISINOPRIL 10 MG TABLET PO SCH (08:38)
[2018-04-13] MEDS: POLYETHYLENE GLYCOL 3350 17 GM PACKET. PO SCH (08:38)
[2018-04-13] MEDS: ISOSORBIDE MONONITRATE ER 30 MG TAB.ER.24H PO SCH (08:38)
[2018-04-13] MEDS: INSULIN LISPRO 300 UNITS/3 ML INSULN.PEN. SQ SCH ×3 (08:49→17:55)
[2018-04-13] MEDS: INSULIN GLARGINE 300 UNITS/3 ML INSULN.PEN. SQ SCH ×2 (08:49→23:14)
[2018-04-13] MEDS: MORPHINE SULFATE 2 MG/ML VIAL. IV PRN ×2 (09:31→20:22)
[2018-04-13 10:00] LABS: BASO % 0 % (0-3); EOS # 0.1 x10^3/uL (0.0-0.7); EOS % 1 % (0-3); HEMATOCRIT 32.3 % (39.0-53.0); LYMPH # 2.5 x10^3/uL (1.0-4.8); LYMPH % 23 % (24-48); MEAN CORPUSCULAR HEMOGLOBIN 30 pg (25-35); MEAN CORPUSCULAR HGB CONC 34 g/dL (31-37); MEAN CORPUSCULAR VOLUME 88 fL (79-100); MONO # 0.5 x10^3/uL (0.0-1.1); MONO % 5 % (0-9); NEUT # 7.7 x10^3uL (1.8-7.7); NEUT % 71 % (31-73); PLATELET COUNT 231 x10^3/uL (140-400); RED BLOOD COUNT 3.66 x10^6/uL (4.30-5.70); RED CELL DISTRIBUTION WIDTH 13.7 % (11.5-14.5); WHITE BLOOD COUNT 10.8 x10^3/uL (4.0-11.0)
[2018-04-13 10:09] LABS: CALCIUM 8.7 mg/dL (8.5-10.1); GFR 34.3; POTASSIUM 4.3 mmol/L (3.5-5.1)
--- NOTE | 2018-04-13 10:20 | PDOC ---
Provider Note Provider Note AF VSS awake and alert right groin dressing in place and dry right lower leg and foot ulcer dry with no infection right leg with doppler DP/PT pulses A/P POD#1 right femoral endarterectomy - d/c cotto and IV fluids - ambulate as tolerated - cardiac diet - possible discharge home tomorrow MELISA PARISH MD Apr 13, 2018 10:20
[2018-04-13 11:00] VITALS: BP 102/60
--- NOTE | 2018-04-13 12:56 | CONS ---
DATE OF CONSULTATION: 04/13/2018 REASON FOR CONSULT: Management of diabetes and hypertension. HISTORY OF PRESENT ILLNESS AND HOSPITAL COURSE: This patient is a 62-year-old male with multiple medical issues, was electively admitted for right lower extremity revascularization due to arterial insufficiency and ulcerations. The patient is postop day 1 and doing well. He did have some nausea the night of surgery, but this resolved with antacids. He has had a bowel movement since surgery and has no current complaints. He continues to have a Gold and is not ambulated to this point, but these things are planned and the Gold discontinuation will most likely be happened today. PAST MEDICAL HISTORY: Significant for: 1. Diabetes type 2 with neuropathy. 2. Coronary artery disease, status post coronary artery bypass graft in 2008. 3. Hypertension. 4. High cholesterol. 5. Hypothyroidism. 6. Morbid obesity. 7. Obstructive sleep apnea. 8. Peripheral vascular disease. 9. Spinal stenosis of L-spine. PAST SURGICAL HISTORY: Significant for: 1. L4 lumbar laminectomy. 2. Coronary artery bypass graft. 3. Tonsillectomy and adenoidectomy. 4. Total hip arthroplasty on the left. FAMILY HISTORY: Significant for mother who with heart disease. Father who has diabetes and heart disease, a sister who has had a heart transplant. SOCIAL HISTORY: The patient continues to smoke approximately 5 cigarettes per day. He does not use alcohol. He now lives alone. He is on disability for back pain. He has greater than [id number] history of smoking. ALLERGIES: The patient has no known drug allergies. REVIEW OF SYSTEMS: The patient denies any cough, congestion, fever, chest pain, shortness of breath, recent weight gain or weight loss, nausea, vomiting or diarrhea. PHYSICAL EXAMINATION: GENERAL: This is a morbidly obese male who is alert and oriented x 3. HEENT: Benign. NECK: Supple, no JVD or bruits. CARDIAC: Regular rate and rhythm without murmur. LUNGS: Clear. ABDOMEN: Soft, nontender. EXTREMITIES: Warm with healing incision on left lower extremity and eschar and ulcers noted on several areas of his lower extremity, which are documented in chart. PLAN: To proceed with reinstituting medications, increasing activity, discontinuing Gold catheter and discharged to home once stable per Vascular Surgery. The patient's medications that we restarted are metoprolol 25 mg half a tablet b.i.d., Imdur 60 mg half a tablet daily, metformin 500 mg 2 tablets b.i.d., Novolin R 40 units b.i.d., Novolin N 40 units b.i.d., Lipitor 80 mg daily, Plavix 75 mg daily, levothyroxine 50 mcg daily, Remeron 30 mg at bedtime, cyclobenzaprine 10 mg at bedtime, oxycodone 10 mg 3 tablets at bedtime, nitroglycerin p.r.n. sublingually, omega 3 fatty acids, Coenzyme Q10, vitamin C, vitamin D, and Centrum Silver. Again, the patient will be followed by routine postoperative course for revascularization and possible discharge home when stable per Vascular Surgery. I will follow during the hospital stay and as an outpatient. Thank you very much for this consultation. BHARGAV HARPER MD DR: ROB/eliane JOB#: [id number] / [id number]
[2018-04-13 15:00] VITALS: BP 124/67
[2018-04-13] MEDS: METOCLOPRAMIDE 5 MG TABLET. PO SCH ×2 (17:09→20:18)
[2018-04-13 19:50] VITALS: BP 137/60
[2018-04-13] MEDS: CYCLOBENZAPRINE 10 MG TABLET. PO SCH (20:16)
[2018-04-13] MEDS: ATORVASTATIN CALCIUM 40 MG TABLET. PO SCH (20:17)
[2018-04-13] MEDS: MIRTAZAPINE 15 MG TABLET PO SCH (20:18)
[2018-04-13 23:10] VITALS: BP 134/63
[2018-04-14 03:20] VITALS: BP 157/71
[2018-04-14] MEDS: LEVOTHYROXINE 50 MCG TABLET PO SCH (06:00)
[2018-04-14] MEDS: HYDROcodone/APAP 10/325 1 TAB TABLET PO PRN ×2 (06:01→10:07)
[2018-04-14 07:00] VITALS: BP 164/74
[2018-04-14] MEDS: MORPHINE SULFATE 2 MG/ML VIAL. IV PRN ×2 (07:37→12:28)
[2018-04-14] MEDS: INSULIN LISPRO 300 UNITS/3 ML INSULN.PEN. SQ SCH ×2 (08:00→09:01)
[2018-04-14 08:48] LABS: HEMATOCRIT 33.1 % (39.0-53.0); HEMOGLOBIN 11.1 g/dL (13.0-17.5); RED BLOOD COUNT 3.76 x10^6/uL (4.30-5.70); RED CELL DISTRIBUTION WIDTH 13.8 % (11.5-14.5); WHITE BLOOD COUNT 10.9 x10^3/uL (4.0-11.0)
[2018-04-14] MEDS: CLOPIDOGREL BISULFATE 75 MG TABLET PO SCH (08:49)
[2018-04-14] MEDS: CHOLECALCIFEROL (VITAMIN D3) 1,000 UNIT TABLET PO SCH (08:49)
[2018-04-14] MEDS: MULTIVITAMIN with MINERAL TABLET. PO SCH (08:50)
[2018-04-14] MEDS: LISINOPRIL 10 MG TABLET PO SCH (08:50)
[2018-04-14] MEDS: ISOSORBIDE MONONITRATE ER 30 MG TAB.ER.24H PO SCH (08:50)
[2018-04-14] MEDS: ASCORBIC ACID 500 MG TABLET PO SCH (08:50)
[2018-04-14] MEDS: METOPROLOL TART IMMED RELEASE 25 MG TABLET. PO SCH (08:51)
[2018-04-14] MEDS: POLYETHYLENE GLYCOL 3350 17 GM PACKET. PO SCH (08:51)
[2018-04-14] MEDS: METOCLOPRAMIDE 5 MG TABLET. PO SCH ×2 (08:59→11:30)
[2018-04-14] MEDS: INSULIN GLARGINE 300 UNITS/3 ML INSULN.PEN. SQ SCH (09:02)
[2018-04-14 09:06] LABS: CALCIUM 8.6 mg/dL (8.5-10.1); CREATININE 1.8 mg/dL (0.7-1.3); GFR 38.7; POTASSIUM 4.7 mmol/L (3.5-5.1)
--- NOTE | 2018-04-14 09:13 | PDOC ---
PROGRESS NOTES Subjective Subjective Patient feeling better today. Patient ambulating and tolerating diet. patient with some nausea yesterday resolved with Reglan. Objective Objective Vital Signs Date Time Temp Pulse Resp B/P (MAP) Pulse Ox O2 Delivery O2 Flow Rate FiO2 04/14/18 08:51 101 04/14/18 07:00 98.3 18 164/74 (104) 96 Room Air 98.3 04/14/18 06:01 2.0 Intake and Output 04/14/18 07:00 Intake Total 1350 ml Output Total 2825 ml Balance -1475 ml Intake Oral 1350 ml Output Urine Total 2825 ml Physical Exam Abdomen: Normal bowel sounds Heart: Regular rate Extremities: No edema General: Alert Lungs: Clear to auscultation Assessment Assessment Post op day #2 revascularization right leg. PMH: 1. Diabetes type 2 with neuropathy. 2. Coronary artery disease, status post coronary artery bypass graft in 2008. 3. Hypertension. 4. High cholesterol. 5. Hypothyroidism. 6. Morbid obesity. 7. Obstructive sleep apnea. 8. Peripheral vascular disease. 9. Spinal stenosis of L-spine. Plan Plan of Residential per [facility] surgery F/U in Clinic 1 week Comment Review of Relevant I have reviewed the following items lizzy (where applicable) has been applied. Labs Laboratory Tests Test 04/12/18 11:05 04/12/18 20:32 04/13/18 05:00 04/13/18 07:48 Glucose (Fingerstick) 120 mg/dL (70-99) 247 mg/dL (70-99) 187 mg/dL (70-99) 172 mg/dL (70-99) Test 04/13/18 09:20 04/13/18 12:11 04/13/18 16:39 04/13/18 20:46 White Blood Count 10.8 x10^3/uL (4.0-11.0) Red Blood Count 3.66 x10^6/uL (4.30-5.70) Hemoglobin 11.0 g/dL (13.0-17.5) Hematocrit 32.3 % (39.0-53.0) Mean Corpuscular Volume 88 fL (79-100) Mean Corpuscular Hemoglobin 30 pg (25-35) Mean Corpuscular Hemoglobin Concent 34 g/dL (31-37) Red Cell Distribution Width 13.7 % (11.5-14.5) Platelet Count 231 x10^3/uL (140-400) Neutrophils (%) (Auto) 71 % (31-73) Lymphocytes (%) (Auto) 23 % (24-48) Monocytes (%) (Auto) 5 % (0-9) Eosinophils (%) (Auto) 1 % (0-3) Basophils (%) (Auto) 0 % (0-3) Neutrophils # (Auto) 7.7 x10^3uL (1.8-7.7) Lymphocytes # (Auto) 2.5 x10^3/uL (1.0-4.8) Monocytes # (Auto) 0.5 x10^3/uL (0.0-1.1) Eosinophils # (Auto) 0.1 x10^3/uL (0.0-0.7) Basophils # (Auto) 0.0 x10^3/uL (0.0-0.2) Sodium Level 137 mmol/L (136-145) Potassium Level 4.3 mmol/L (3.5-5.1) Chloride Level 102 mmol/L (98-107) Carbon Dioxide Level 25 mmol/L (21-32) Anion Gap 10 (6-14) Blood Urea Nitrogen 37 mg/dL (8-26) Creatinine 2.0 mg/dL (0.7-1.3) Estimated GFR (Cockcroft-Gault) 34.3 Glucose Level 207 mg/dL (70-99) Calcium Level 8.7 mg/dL (8.5-10.1) Glucose (Fingerstick) 159 mg/dL (70-99) 88 mg/dL (70-99) 175 mg/dL (70-99) Test 04/14/18 07:35 04/14/18 08:20 Glucose (Fingerstick) 233 mg/dL (70-99) White Blood Count 10.9 x10^3/uL (4.0-11.0) Red Blood Count 3.76 x10^6/uL (4.30-5.70) Hemoglobin 11.1 g/dL (13.0-17.5) Hematocrit 33.1 % (39.0-53.0) Mean Corpuscular Volume 88 fL (79-100) Mean Corpuscular Hemoglobin 30 pg (25-35) Mean Corpuscular Hemoglobin Concent 33 g/dL (31-37) Red Cell Distribution Width 13.8 % (11.5-14.5) Platelet Count 233 x10^3/uL (140-400) Sodium Level 138 mmol/L (136-145) Potassium Level 4.7 mmol/L (3.5-5.1) Chloride Level 102 mmol/L (98-107) Carbon Dioxide Level 29 mmol/L (21-32) Anion Gap 7 (6-14) Blood Urea Nitrogen 36 mg/dL (8-26) Creatinine 1.8 mg/dL (0.7-1.3) Estimated GFR (Cockcroft-Gault) 38.7 Glucose Level 238 mg/dL (70-99) Calcium Level 8.6 mg/dL (8.5-10.1) Laboratory Tests Test 04/13/18 09:20 04/13/18 12:11 04/13/18 16:39 04/13/18 20:46 White Blood Count 10.8 x10^3/uL (4.0-11.0) Red Blood Count 3.66 x10^6/uL (4.30-5.70) Hemoglobin 11.0 g/dL (13.0-17.5) Hematocrit 32.3 % (39.0-53.0) Mean Corpuscular Volume 88 fL (79-100) Mean Corpuscular Hemoglobin 30 pg (25-35) Mean Corpuscular Hemoglobin Concent 34 g/dL (31-37) Red Cell Distribution Width 13.7 % (11.5-14.5) Platelet Count 231 x10^3/uL (140-400) Neutrophils (%) (Auto) 71 % (31-73) Lymphocytes (%) (Auto) 23 % (24-48) Monocytes (%) (Auto) 5 % (0-9) Eosinophils (%) (Auto) 1 % (0-3) Basophils (%) (Auto) 0 % (0-3) Neutrophils # (Auto) 7.7 x10^3uL (1.8-7.7) Lymphocytes # (Auto) 2.5 x10^3/uL (1.0-4.8) Monocytes # (Auto) 0.5 x10^3/uL (0.0-1.1) Eosinophils # (Auto) 0.1 x10^3/uL (0.0-0.7) Basophils # (Auto) 0.0 x10^3/uL (0.0-0.2) Sodium Level 137 mmol/L (136-145) Potassium Level 4.3 mmol/L (3.5-5.1) Chloride Level 102 mmol/L (98-107) Carbon Dioxide Level 25 mmol/L (21-32) Anion Gap 10 (6-14) Blood Urea Nitrogen 37 mg/dL (8-26) Creatinine 2.0 mg/dL (0.7-1.3) Estimated GFR (Cockcroft-Gault) 34.3 Glucose Level 207 mg/dL (70-99) Calcium Level 8.7 mg/dL (8.5-10.1) Glucose (Fingerstick) 159 mg/dL (70-99) 88 mg/dL (70-99) 175 mg/dL (70-99) Test 04/14/18 07:35 04/14/18 08:20 Glucose (Fingerstick) 233 mg/dL (70-99) White Blood Count 10.9 x10^3/uL (4.0-11.0) Red Blood Count 3.76 x10^6/uL (4.30-5.70) Hemoglobin 11.1 g/dL (13.0-17.5) Hematocrit 33.1 % (39.0-53.0) Mean Corpuscular Volume 88 fL (79-100) Mean Corpuscular Hemoglobin 30 pg (25-35) Mean Corpuscular Hemoglobin Concent 33 g/dL (31-37) Red Cell Distribution Width 13.8 % (11.5-14.5) Platelet Count 233 x10^3/uL (140-400) Sodium Level 138 mmol/L (136-145) Potassium Level 4.7 mmol/L (3.5-5.1) Chloride Level 102 mmol/L (98-107) Carbon Dioxide Level 29 mmol/L (21-32) Anion Gap 7 (6-14) Blood Urea Nitrogen 36 mg/dL (8-26) Creatinine 1.8 mg/dL (0.7-1.3) Estimated GFR (Cockcroft-Gault) 38.7 Glucose Level 238 mg/dL (70-99) Calcium Level 8.6 mg/dL (8.5-10.1) Medications Current Medications Prochlorperazine Edisylate (Compazine) 5 mg PACU PRN PRN IV NAUSEA, MRX1; Start 04/12/18 at 07:00; Stop 04/12/18 at 15:29; Status DC Lidocaine HCl (Xylocaine-Mpf 1% Vial) 2 ml PRN 1X PRN ID PRIOR TO IV START; Start 04/12/18 at 07:00; Stop 04/12/18 at 15:29; Status DC Ringer's Solution 1,000 ml @ 30 mls/hr Q24H IV Last administered on 04/12/18at 06:53; Start 04/12/18 at 07:00; Stop 04/12/18 at 15:29; Status DC Morphine Sulfate (Morphine Sulfate) 1 mg PRN Q10MIN PRN IV SEVERE PAIN; Start 04/12/18 at 07:00; Stop 04/12/18 at 15:29; Status DC Fentanyl Citrate (Fentanyl 2ml Vial) 50 mcg PRN Q5MIN PRN IV MODERATE TO SEVERE PAIN Last administered on 04/12/18at 12:27; Start 04/12/18 at 07:00; Stop at 15:29; Status DC Fentanyl Citrate (Fentanyl 2ml Vial) 25 mcg PRN Q5MIN PRN IV MILD PAIN; Start 04/12/18 at 07:00; Stop 04/12/18 at 15:29; Status DC Ondansetron HCl (Zofran) 4 mg PRN Q6HRS PRN IV NAUSEA/VOMITING; Start 04/12/18 at 07:00; Stop 04/12/18 at 15:29; Status DC Heparin Sodium (Porcine) 5000 unit/Sodium Chloride 505 ml @ 505 mls/hr 1X ONCE IRR Last administered on 04/12/18at 08:12; Start 04/12/18 at 06:00; Stop 04/12 at 06:59; Status DC Cefazolin Sodium 1 gm/Sodium Chloride 500 ml @ 500 mls/hr 1X ONCE IRR Last administered on 04/12/18at 08:12; Start 04/12/18 at 06:00; Stop 04/12/18 at 06:59; Status DC Cefazolin Sodium/ Dextrose 50 ml @ 100 mls/hr 1X PREOP PRN IV PRIOR TO PROCEDURE; Start 04/12/18 at 06:00; Stop 04/12/18 at 18:00; Status DC Iohexol (Omnipaque 300 Mg/ml) 100 ml STK-MED ONCE .ROUTE ; Start 04/12/18 at 05: 33; Stop 04/12/18 at 06:35; Status DC Cellulose (Surgicel Fibrillar 1x2) 1 each STK-MED ONCE .ROUTE ; Start 04/12/18 at 05:33; Stop 04/12/18 at 06:35; Status DC Propofol 20 ml @ As Directed STK-MED ONCE IV ; Start 04/12/18 at 07:01; Stop 04/12 at 07:02; Status DC Dexamethasone Sodium Phosphate (Decadron) 20 mg STK-MED ONCE .ROUTE ; Start 04/12 at 07:01; Stop 04/12/18 at 07:02; Status DC Famotidine (Pepcid Vial) 20 mg STK-MED ONCE .ROUTE ; Start 04/12/18 at 07:01; Stop 04/12/18 at 07:02; Status DC Lidocaine HCl (Lidocaine Pf 2% Vial) 5 ml STK-MED ONCE .ROUTE ; Start 04/12/18 at 07:01; Stop 04/12/18 at 07:02; Status DC Ondansetron HCl (Zofran) 4 mg STK-MED ONCE .ROUTE ; Start 04/12/18 at 07:01; Stop 04/12/18 at 07:02; Status DC Rocuronium Renner (Zemuron) 50 mg STK-MED ONCE .ROUTE ; Start 04/12/18 at 07:01 ; Stop 04/12/18 at 07:03; Status DC Fentanyl Citrate (Fentanyl 2ml Vial) 100 mcg STK-MED ONCE .ROUTE ; Start at 07:02; Stop 04/12/18 at 07:03; Status DC Midazolam HCl (Versed) 2 mg STK-MED ONCE .ROUTE ; Start 04/12/18 at 07:02; Stop 04/12/18 at 07:03; Status DC Succinylcholine Chloride (Anectine) 200 mg STK-MED ONCE .ROUTE ; Start 04/12/18 at 07:31; Stop 04/12/18 at 07:32; Status DC Phenylephrine HCl (PHENYLEPHRINE in 0.9% NACL PF) 1 mg STK-MED ONCE IV ; Start 04/12/18 at 07:53; Stop 04/12/18 at 07:54; Status DC Fentanyl Citrate (Fentanyl 2ml Vial) 100 mcg STK-MED ONCE .ROUTE ; Start at 08:28; Stop 04/12/18 at 08:29; Status DC Vasopressin (Vasostrict) 20 unit STK-MED ONCE .ROUTE ; Start 04/12/18 at 08:43; Stop 04/12/18 at 08:44; Status DC Heparin Sodium (Porcine) (Heparin Sodium) 10,000 unit STK-MED ONCE .ROUTE ; Start 04/12/18 at 09:01; Stop 04/12/18 at 09:02; Status DC Sevoflurane (Ultane) 60 ml STK-MED ONCE IH ; Start 04/12/18 at 09:01; Stop at 09:02; Status DC Sevoflurane (Ultane) 60 ml STK-MED ONCE IH ; Start 04/12/18 at 09:07; Stop at 09:08; Status DC Desflurane (Suprane) 90 ml STK-MED ONCE IH ; Start 04/12/18 at 10:15; Stop at 10:16; Status DC Neostigmine Methylsulfate (Neostigmine Methylsulfate) 5 mg STK-MED ONCE .ROUTE ; Start 04/12/18 at 10:15; Stop 04/12/18 at 10:16; Status DC Glycopyrrolate (Robinul) 1 mg STK-MED ONCE .ROUTE ; Start 04/12/18 at 10:16; Stop 04/12/18 at 10:17; Status DC Propofol 20 ml @ As Directed STK-MED ONCE IV ; Start 04/12/18 at 10:26; Stop 04/12 at 10:27; Status DC Fentanyl Citrate (Fentanyl 2ml Vial) 100 mcg STK-MED ONCE .ROUTE ; Start at 11:00; Stop 04/12/18 at 11:01; Status DC Fentanyl Citrate (Fentanyl 2ml Vial) 100 mcg STK-MED ONCE .ROUTE ; Start at 11:55; Stop 04/12/18 at 11:56; Status DC Ringer's Solution 1,000 ml @ 100 mls/hr Q10H IV Last administered on 04/13/18 01:22; Start 04/12/18 at 14:00; Stop 04/13/18 at 03:32; Status DC Morphine Sulfate (Morphine Sulfate) 2 mg PRN Q1HR PRN IV PAIN Last administered on 04/14/18at 07:37; Start 04/12/18 at 14:00 Acetaminophen/ Hydrocodone Bitart (Lortab 10/325) 1 tab PRN Q4HRS PRN PO PAIN Last administered on 04/14/18 06:01; Start 04/12/18 at 14:00 Morphine Sulfate (Morphine Sulfate) 1 mg PRN Q1HR PRN IV PAIN; Start 04/12/18 at 14:15 Cyclobenzaprine HCl (Flexeril) 10 mg HS PO Last administered on 04/13/18 20:16 ; Start 04/12/18 at 21:00 Clopidogrel Bisulfate (Plavix) 75 mg DAILYWBKFT PO Last administered on 08:49; Start 04/13/18 at 09:00 Atorvastatin Calcium (Lipitor) 80 mg QHS PO Last administered on 04/13/18 20:17 ; Start 04/12/18 at 21:00 Isosorbide Mononitrate (Imdur) 30 mg DAILY PO Last administered on 04/14/18 08: 50; Start 04/13/18 at 09:00 Metoprolol Tartrate (Lopressor) 12.5 mg BID PO Last administered on 04/14/18 08 :51; Start 04/13/18 at 09:00 Lisinopril (Prinivil) 10 mg DAILY PO Last administered on 04/14/18 08:50; Start 04/13/18 at 09:00 Mirtazapine (Remeron) 30 mg QHS PO Last administered on 04/13/18 20:18; Start 04/12/18 at 21:00 Polyethylene Glycol (miraLAX PACKET) 17 gm DAILY PO Last administered on 08:51; Start 04/13/18 at 09:00 Levothyroxine Sodium (Synthroid) 50 mcg DAILY07 PO Last administered on 06:00; Start 04/13/18 at 07:00 Ascorbic Acid (Vitamin C) 500 mg DAILY PO Last administered on 04/14/18 08:50; Start 04/13/18 at 09:00 Vitamin D (Vitamin D3) 2,000 unit DAILY PO Last administered on 04/14/18 08:49 ; Start 04/13/18 at 09:00 Multivitamins (Thera M Plus) 1 tab DAILY PO Last administered on 04/14/18 08:50 ; Start 04/13/18 at 09:00 Insulin Human Lispro (HumaLOG) 40 units TIDWMEALS SQ Last administered on 09:01; Start 04/12/18 at 17:00 Insulin Glargine (Lantus) 40 units BID SQ Last administered on 04/14/18 09:02; Start 04/12/18 at 21:00 Famotidine (Pepcid) 20 mg PRN BID PRN PO HEARTBURN, 1ST CHOICE Last administered on 04/13/18 15:50; Start 04/13/18 at 00:45 Al Hydroxide/Mg Hydroxide (Mylanta Plus Xs) 30 ml PRN Q2HR PRN PO HEARTBURN / GAS, 2ND CHOICE Last administered on 04/13/18 15:50; Start 04/13/18 at 04:45 Ondansetron HCl (Zofran) 4 mg PRN Q6HRS PRN IV NAUSEA/VOMITING 1st choice Last administered on 04/13/18 13:32; Start 04/13/18 at 04:45 Cefazolin Sodium/ Dextrose (Ancef 2gm Premix) 2 gm STK-MED ONCE IV ; Start at 07:00; Stop 04/13/18 at 13:24; Status DC Metoclopramide HCl (Reglan) 5 mg QIDACHS PO Last administered on 04/14/18 08:59 ; Start 04/13/18 at 16:45 Active Scripts Active Reported Multiple Vitamin (Multivitamin With Minerals) 1 Each Tablet 1 Each PO DAILY Miralax (Polyethylene Glycol 3350) 17 Gm Powd.pack 1 Pkt PO DAILY Oxycodone Hcl 10 Mg Tablet 10 Mg PO DAILY PRN Mirtazapine 30 Mg Tablet 30 Mg PO DAILY Metoprolol Tartrate 25 Mg Tablet 12.5 Mg PO BID Metformin Hcl Er (Metformin Hcl) 1,000 Mg Tab.er.24 1,000 Mg PO BIDACBL Lisinopril 10 Mg Tablet 10 Mg PO DAILY Levothyroxine Sodium 50 Mcg Tablet 50 Mcg PO DAILYAC Isosorbide Mononitrate Er (Isosorbide Mononitrate) 30 Mg Tab.er.24h 30 Mg PO DAILY Novolin R (Insulin Regular, Human) 100 Unit/1 Ml Vial 40 Unit IJ TIDAC Novolin N (Nph, Human Insulin Isophane) 100 Unit/1 Ml Vial 40 Unit SQ BID Cyclobenzaprine Hcl 10 Mg Tablet 10 Mg PO QHS Clopidogrel (Clopidogrel Bisulfate) 75 Mg Tablet 75 Mg PO DAILY Vitamin D3 (Cholecalciferol (Vitamin D3)) 2,000 Unit Tablet 2,000 Unit PO DAILY Atorvastatin Calcium 80 Mg Tablet 80 Mg PO HS Vitamin C (Ascorbic Acid) 500 Mg Tablet 500 Mg PO DAILY Vitals/I & O Vital Sign - Last 24 Hours 04/13/18 04/13/18 04/13/18 04/13/18 11:00 15:00 19:50 20:00 Temp 97.7 98.7 98.9 97.7 98.7 98.9 Pulse 110 91 102 Resp 16 18 20 B/P (MAP) 102/60 (74) 124/67 (86) 137/60 (85) Pulse Ox 95 96 95 O2 Delivery Room Air Room Air Room Air Room Air 04/13/18 04/13/18 04/13/18 04/13/18 20:14 20:16 20:22 20:52 Pulse 102 Resp 16 16 B/P (MAP) 137/60 O2 Delivery Room Air Room Air Room Air 04/13/18 04/14/18 04/14/18 04/14/18 23:10 03:20 06:01 07:00 Temp 98.1 98.3 98.3 98.1 98.3 98.3 Pulse 94 95 99 Resp 18 18 16 18 B/P (MAP) 134/63 (86) 157/71 (99) 164/74 (104) Pulse Ox 94 95 96 O2 Delivery Room Air Room Air Room Air Room Air O2 Flow Rate 2.0 04/14/18 04/14/18 04/14/18 08:50 08:50 08:51 Pulse 101 101 101 Intake and Output 04/13/18 04/13/18 04/14/18 15:00 23:00 07:00 Intake Total 750 ml 600 ml Output Total 800 ml 600 ml 1425 ml Balance -800 ml 150 ml -825 ml BHARGAV HARPER MD Apr 14, 2018 09:13
[2018-04-14 11:00] VITALS: BP 131/59
--- NOTE | 2018-04-14 11:11 | PDOC ---
Provider Note Provider Note Vascular AF VSS awake and alert right groin dressing in place and dry right lower leg and foot ulcer dry with no infection, new area of disruption in first toe toenail A/P POD#1 right femoral endarterectomy - activity as tolerated - discharge home today - f/u as scheduled with MALGORZATA Sherman APRN Apr 14, 2018 11:11
--- NOTE | 2018-04-14 11:15 | DISCH ---
DISCHARGE INSTRUCTIONS Condition on Discharge Condition on Discharge: Stable Activity After Discharge Activity Instructions for Disc: Resume previous activity Bathing Instructions: Shower-keep dressing dry Wound Incision Care Wound/Incision Care: Other, see below (dry gauze dressing applied to right groin, continue betadine to ulcers on leg, may use diabetic cream or eurcerin to moisturized feet) Contacting the after DC Call your doctor for: monitor incision and ulcers for any drainage, erythema or swelling and call the office Follow-Up Follow up with: Dr. Morejon [phone] 05/04/2018 10:10 MALGORZATA COLINDRES APRN Apr 14, 2018 11:15
[2018-04-14] MEDS ORDERED: INSULIN LISPRO 300 UNITS/3 ML INSULN.PEN. SQ ONE (12:30)
== END 2018-04-14 15:05 | disposition home health service (06) | DRG 253 ==
LOC: SURG 05:57 → 2 SOUTH 12:30
PROVIDERS: ADMIT Family Medicine; ATTEND Surgery
PROC: 04UK0KZ Supplement Right Femoral Artery with Nonautologous Tissue Substitute, Open Approach (ICD-10-PCS; 2018-04-12)
PROC: 04CK0ZZ Extirpation of Matter from Right Femoral Artery, Open Approach (ICD-10-PCS; principal; 2018-04-12 07:30)
DX: E11.51 Type 2 diabetes mellitus with diabetic peripheral angiopathy without gangrene (principal); Z68.41 Body mass index [BMI] 40.0-44.9, adult; I70.201 Unspecified atherosclerosis of native arteries of extremities, right leg; E11.621 Type 2 diabetes mellitus with foot ulcer; L97.519 Non-pressure chronic ulcer of other part of right foot with unspecified severity; E11.40 Type 2 diabetes mellitus with diabetic neuropathy, unspecified; E11.22 Type 2 diabetes mellitus with diabetic chronic kidney disease; I25.10 Atherosclerotic heart disease of native coronary artery without angina pectoris; E78.00 Pure hypercholesterolemia, unspecified; E78.2 Mixed hyperlipidemia; E66.01 Morbid (severe) obesity due to excess calories; E03.9 Hypothyroidism, unspecified; G47.33 Obstructive sleep apnea (adult) (pediatric); M48.061 Spinal stenosis, lumbar region without neurogenic claudication; F17.210 Nicotine dependence, cigarettes, uncomplicated; N18.3 Chronic kidney disease, stage 3 (moderate); I12.9 Hypertensive chronic kidney disease with stage 1 through stage 4 chronic kidney disease, or unspecified chronic kidney disease; K21.9 Gastro-esophageal reflux disease without esophagitis; M19.90 Unspecified osteoarthritis, unspecified site; Z96.642 Presence of left artificial hip joint; Z95.1 Presence of aortocoronary bypass graft; Z83.3 Family history of diabetes mellitus; Z82.49 Family history of ischemic heart disease and other diseases of the circulatory system; I25.2 Old myocardial infarction; Z98.1 Arthrodesis status; Z79.4 Long term (current) use of insulin; Z79.899 Other long term (current) drug therapy
CPT/HCPCS: 36415; 80048; 82962; 85025; 85027; 85610; 85730; A7015; J0330; J0690; J1100; J1644; J1815; J2001; J2250; J2270; J2370; J2405; J2704; J2710; J3010; J3490; J7040; J7120; J8597; Q9967; S0028

== ENCOUNTER → 2018-05-19 | Outpatient (CLI) | payer MEDICARE ==
[~2018-05-19] MED LIST changes: -IOHEXOL 300 MG/ML 100ML VIAL. ONE; -SURGICEL FIBRILLAR 1X2 EACH. ONE
== END | disposition home or self-care (01) ==
LOC: PMGWOUND 11:17
PROVIDERS: ATTEND Emergency Medicine Undersea and Hyperbaric Medicine
DX: E11.621 Type 2 diabetes mellitus with foot ulcer (principal); I87.311 Chronic venous hypertension (idiopathic) with ulcer of right lower extremity; L97.812 Non-pressure chronic ulcer of other part of right lower leg with fat layer exposed; L97.511 Non-pressure chronic ulcer of other part of right foot limited to breakdown of skin; I70.232 Atherosclerosis of native arteries of right leg with ulceration of calf; I12.9 Hypertensive chronic kidney disease with stage 1 through stage 4 chronic kidney disease, or unspecified chronic kidney disease; E11.22 Type 2 diabetes mellitus with diabetic chronic kidney disease; N18.3 Chronic kidney disease, stage 3 (moderate); E11.40 Type 2 diabetes mellitus with diabetic neuropathy, unspecified; E11.319 Type 2 diabetes mellitus with unspecified diabetic retinopathy without macular edema; E11.51 Type 2 diabetes mellitus with diabetic peripheral angiopathy without gangrene; K21.9 Gastro-esophageal reflux disease without esophagitis; F17.210 Nicotine dependence, cigarettes, uncomplicated; E78.2 Mixed hyperlipidemia; E78.00 Pure hypercholesterolemia, unspecified; E03.9 Hypothyroidism, unspecified; M19.90 Unspecified osteoarthritis, unspecified site; I25.10 Atherosclerotic heart disease of native coronary artery without angina pectoris; E66.01 Morbid (severe) obesity due to excess calories; Z68.37 Body mass index [BMI] 37.0-37.9, adult; Z79.4 Long term (current) use of insulin
CPT/HCPCS: 97597